=== PATIENT | male | born 1950 | race Caucasian/White ===

== ENCOUNTER 2019-03-24 23:01 | Emergency (ER) | payer OTHER ==
[2019-03-24 23:05] VITALS: BP 133/60; PULSE 85; TEMP 97.5; BMI 27.2
== END 2019-03-24 23:46 | disposition left against medical advice (07) ==
LOC: JER 23:01
DX: Z53.21 Procedure and treatment not carried out due to patient leaving prior to being seen by health care provider (principal)
CPT/HCPCS: 99281-25

== ENCOUNTER 2019-03-25 00:34 | Inpatient (IN) | payer OTHER ==
--- NOTE | 2019-03-25 00:57 | PDOC ---
History of Present Illness - General Chief Complaint: Chronic pain Stated Complaint: SYNCOPE History Source: Patient Exam Limitations: No Limitations - History of Present Illness Initial Comments: 03/25/19 01:12 This is a 68-year-old male with extensive history hypertension high cholesterol diabetes who comes in complaining of left lower quadrant pain. Patient said he has had the pain mild for a couple of weeks and then today got much worse to the point that he became lightheaded dizzy and syncopized. Patient hit his mari when he fell down. Patient denies hitting his head. Patient was in his bathroom when he syncopized. Patient said that he did have a bowel movement today. Patient also has a history of vertigo for which she takes meclizine and is on an aspirin a day Allergies: as per nursing notes Past Medical History: As per history of present illness Social history: Lives with family. No smoking. No alcohol. No illicit drugs. Surgical history: None General: No fevers or chills, no weakness, no weight loss HEENT: No change in vision. No sore throat,. No ear pain CardioVascular: no chest discomfort. No shortness of breath Respiratory:No cough, or wheezing. Gastrointestinal: no nausea, vomiting, diarrhea or constipation, No rectal bleeding Genitourinary: No dysuria, hematuria, or frequency Musculoskeletal: No joint or muscle pain or swelling Neurologic: No headache, vertigo, dizziness or loss of consciousness Psychiatric: nor depression Skin: No rashes or easy bruising Endocrine: no increased thirst or abnormal weight change Allergic: no skin or latex allergy All other systems reviewed and normal Exam: General: Well-nourished well-developed individual, no acute distress HEENT: Throat: Normal, tonsils normal, no erythema or exudate Neck: Supple, no meningeal signs, no lymphadenopathy Eyes::Pupils equal reactive and round, extraocular motion intact Chest: Nontender to palpation Cardiac: S1-S2 normal, regular rate and rhythm, no murmurs rubs or gallops Respiratory: Lungs clear to auscultation bilateral Abdomen: Soft, nondistended, normal bowel sounds, there is moderately tender in left lower quadrant with no guarding or rebound. Bowel sounds are present but decreased. Extremities: Warm, dry, no cyanosis, clubbing, or edema Skin: No rashes Neuro: Alert and oriented x3, CN II - XII intact, nonfocal exam with normal strength, normal sensation, normal reflexes, normal gait, Psych: Normal mood and affect Assessment and plan: This is 68-year-old male who comes in complaining of lower quadrant pain and a syncopal event secondary to the pain as per patient. Workup initiated including EKG, CBC, comp, chest x-ray, CAT scan abdomen and pelvis, CAT scan had Patient's tetanus is up-to-date Will follow-up evaluation, reassess and monitor patient 03/25/19 01:16 03/25/19 05:[address] is negative for any acute pathology of Abdominal CT shows a perforated diverticulitis with early abscess formation. Assessment and plan: This is a 68-year-old male with perforated diverticulitis and abdominal pain. Surgery was contacted Past History - Past Medical History Allergies/Adverse Reactions: Allergies Allergy/AdvReac Type Severity Reaction Status Date / Time No Known Allergies Allergy Verified 03/24/19 23:05 Home Medications: Ambulatory Orders Aspirin [ASA -] 325 mg PO DAILY 03/25/19 Losartan Potassium 25 mg PO DAILY 03/25/19 Meclizine HCl [Antivert -] 25 mg PO DAILY 03/25/19 Metformin HCl [Glucophage] 750 mg PO BID 03/25/19 Simvastatin 20 mg PO HS 03/25/19 COPD: No HTN: Yes Hypercholesterolemia: Yes - Suicide/Smoking/Psychosocial Hx Smoking Status: No Smoking History: Unknown if ever smoked Number of Cigarettes Smoked Daily: 0 Hx Alcohol Use: No Drug/Substance Use Hx: No Substance Use Type: None Hx Substance Use Treatment: No ED Treatment Course - LABORATORY CBC & Chemistry Diagram: 03/25/19 01:25 03/25/19 01:25 *DC/Admit/Observation/Transfer Diagnosis at time of Disposition: Diverticulitis large intestine Qualifiers: Diverticulitis complication: with perforation and abscess - Discharge Dispostion Condition at time of disposition: Good Decision to Admit order: Yes - Referrals - Patient Instructions - Post Discharge Activity
[2019-03-25 01:41] LABS: BASO % 0.2 % (0-2.0); EOS % 0.4 % (0-4.5); HEMATOCRIT 39.1 % (35.4-49); HEMOGLOBIN 13.1 GM/dL (11.7-16.9); LYMPH % 5.5 % (8-40); MCH 29.9 pg (25.7-33.7); MCHC 33.5 g/dl (32.0-35.9); MEAN CELL VOLUME 89.3 fl (80-96); MONO % 4.5 % (3.8-10.2); NEUT % 89.4 % (42.8-82.8); PLATELET COUNT 281 K/MM3 (134-434); RBC 4.38 M/mm3 (4.00-5.60); RDW 13.5 % (11.9-15.9)
[2019-03-25] MEDS ORDERED: morphine SULFATE 4 MG/ML VIAL ONE (01:44)
[2019-03-25] MEDS ORDERED: morphine CARPU-JECT 2 MG/1 ML DISP.SYRIN IVPUSH ONE (01:45)
[2019-03-25 02:09] LABS: ALBUMIN 4.2 g/dl (3.4-5.0); ALK PHOS 82 U/L (45-117); ANION GAP 9 MMOL/L (8-16); BILIRUBIN,TOTAL 0.9 mg/dL (0.2-1); BLOOD UREA NITROGEN 24.2 mg/dL (7-18); CALCIUM 8.8 mg/dL (8.5-10.1); CHLORIDE 100 mmol/L (98-107); CO2 29 mmol/L (21-32); CREATININE 1.2 mg/dL (0.55-1.3); GLUCOSE,RANDOM 150 mg/dL (74-106); POTASSIUM 3.9 mmol/L (3.5-5.1); SGOT/AST 24 U/L (15-37); SGPT/ALT 23 U/L (13-61); SODIUM 137 mmol/L (136-145); TOT PROT 7.2 g/dl (6.4-8.2)
[2019-03-25] MEDS ORDERED: PIPERACILLIN/TAZOB 4.5 GM 4.5 GM in DEXTROSE 5%-WATER 100 ML IVPB ONE (05:40)
[2019-03-25] MEDS ORDERED: PIPERACILLIN/TAZOBACTAM 4.5 GM VIAL IVPB ONE ×2 (05:48→17:36)
[2019-03-25] MEDS: SODIUM CHLORIDE 1,000 ML IV SCH ×2 (06:03→15:30)
[2019-03-25] MEDS ORDERED: HYDROmorphone HCL CARPU-JECT 1 MG/1 ML DISP.SYRIN IVPUSH ONE (06:09)
[2019-03-25] MEDS ORDERED: HYDROmorphone HCL CARPU-JECT 1 MG/1 ML DISP.SYRIN ONE (06:12)
[2019-03-25] MEDS ORDERED: HYDROmorphone HCl 2 MG/ML VIAL IVPUSH PRN (08:15)
[2019-03-25] MEDS ORDERED: ACETAMINOPHEN 1000 MG/100 ML VIAL (NON FORMULARY) IVPB PRN ×3 (08:19→19:31)
--- NOTE | 2019-03-25 08:32 | HP ---
CHIEF COMPLAINT: LLQ pain PCP: HISTORY OF PRESENT ILLNESS: Patient is a 68 year old male with past medical history of HTN, HLD and DM, presented to [facility] ED due to worsening LLQ pain for 1 day. Patient reported experiencing constant, sharp 5/10 LLQ pain that started 2 weeks ago. At this time, patient also started experiencing constipation but denies nausea/ vomiting. No medications or consults were done. Yesterday morning, patient experienced worsening of the LLQ pain, 10/10 in severity that he almost passed out and fell to the floor "due to the pain". He denies any head trauma. He reported decreased appetite, but denies any fever, chills, nausea, vomiting, headache, chest pain, SOB, diarrhea, urinary symptoms. Last bowel movement yesterday. Of note, patient had a colonscopy 3-4 years ago and was told everything was normal. ER course was notable for: (1)WBC 20148 (2)CTAP - perforated acute diverticulitis at the junction of the descending and sigmoid colon with a small collection. Giant diverticulum vs chronic abscess within the mid sigmoid colon. (3)Flagyl and Zosyn given once Recent Travel:denies PAST MEDICAL HISTORY: HTN HLD DM PAST SURGICAL HISTORY: Right inguinal hernia repair Social History: Smoking:denies Alcohol:denies Drugs: denies Family History: Daughter- Colon cancer Allergies No Known Allergies Allergy (Verified 03/24/19 23:05) HOME MEDICATIONS: Home Medications Medication Instructions Recorded Aspirin [ASA -] 325 mg PO DAILY 03/25/19 Losartan Potassium 25 mg PO DAILY 03/25/19 Meclizine HCl [Antivert -] 25 mg PO DAILY 03/25/19 Metformin HCl [Glucophage] 750 mg PO BID 03/25/19 Simvastatin 20 mg PO HS 03/25/19 REVIEW OF SYSTEMS CONSTITUTIONAL: Absent: fever, chills, diaphoresis, generalized weakness, malaise, loss of appetite, weight change HEENT: Absent: rhinorrhea, nasal congestion, throat pain, throat swelling, difficulty swallowing, mouth swelling, ear pain, eye pain, visual changes CARDIOVASCULAR: Absent: chest pain, syncope, palpitations, irregular heart rate, lightheadedness , peripheral edema RESPIRATORY: Absent: cough, shortness of breath, dyspnea with exertion, orthopnea, wheezing, stridor, hemoptysis GASTROINTESTINAL:abdominal pain Absent: abdominal distension, nausea, vomiting, diarrhea, constipation, melena, hematochezia GENITOURINARY: Absent: dysuria, frequency, urgency, hesitancy, hematuria, flank pain, genital pain MUSCULOSKELETAL: Absent: myalgia, arthralgia, joint swelling, back pain, neck pain SKIN: Absent: rash, itching, pallor HEMATOLOGIC/IMMUNOLOGIC: Absent: easy bleeding, easy bruising, lymphadenopathy, frequent infections ENDOCRINE: Absent: unexplained weight gain, unexplained weight loss, heat intolerance, cold intolerance NEUROLOGIC: Absent: headache, focal weakness or paresthesias, dizziness, unsteady gait, seizure, mental status changes, bladder or bowel incontinence PSYCHIATRIC: Absent: anxiety, depression, suicidal or homicidal ideation, hallucinations. PHYSICAL EXAMINATION Vital Signs - 24 hr 03/25/19 03/25/19 01:25 02:59 Temperature 98.4 F Pulse Rate 76 Pulse Rate [ 80 Left] Respiratory 16 18 Rate Blood Pressure 106/62 Blood Pressure 116/63 [Left] O2 Sat by Pulse 100 95 Oximetry (%) GENERAL: Awake, alert, and fully oriented, in no acute distress. HEAD: Normal with no signs of trauma. EYES: PERRLA, EOMI, sclera anicteric, conjunctiva clear. NECK: Normal range of motion, supple. LUNGS: Breath sounds equal, clear to auscultation bilaterally. HEART: Regular rate and rhythm, normal S1 and S2 without murmur, rub or gallop. ABDOMEN: Soft, +LLQ tenderness, not distended, normoactive bowel sounds, no guarding, no rebound. MUSCULOSKELETAL: Normal range of motion at all joints. No bony deformities or tenderness. No CVA tenderness. UPPER EXTREMITIES: 2+ pulses, warm, well-perfused. No peripheral edema. LOWER EXTREMITIES: 2+ pulses, warm, well-perfused. No peripheral edema. NEUROLOGICAL: Cranial nerves II-XII intact. Normal speech. Normal gait. PSYCHIATRIC: Cooperative. Good eye contact. Appropriate mood and affect. SKIN: Warm, dry, normal turgor, no rashes or lesions noted. Laboratory Results - last 24 hr 03/25/19 03/25/19 03/25/19 01:25 01:25 01:25 WBC 18.0 H RBC 4.38 Hgb 13.1 Hct 39.1 MCV 89.3 MCH 29.9 MCHC 33.5 RDW 13.5 Plt Count 281 MPV 9.0 Absolute Neuts (auto) 16.1 H Neutrophils % 89.4 H Lymphocytes % 5.5 L Monocytes % 4.5 Eosinophils % 0.4 Basophils % 0.2 Nucleated RBC % 0 Sodium 137 Potassium 3.9 Chloride 100 Carbon Dioxide 29 Anion Gap 9 BUN 24.2 H Creatinine 1.2 Est GFR (CKD-EPI)AfAm 71.58 Est GFR (CKD-EPI)NonAf 61.76 Random Glucose 150 H Calcium 8.8 Total Bilirubin 0.9 AST 24 ALT 23 Alkaline Phosphatase 82 Creatine Kinase 496 H Creatine Kinase Index 2.8 CK-MB (CK-2) 14.2 H Troponin I < 0.02 Total Protein 7.2 Albumin 4.2 Urine Color Yellow Urine Appearance Clear Urine pH 5.0 Urine Protein Negative Urine Glucose (UA) Negative Urine Ketones Negative Urine Blood N Urine Nitrite Negative Urine Bilirubin Negative Urine Urobilinogen 0.2 Ur Leukocyte Esterase Negative ASSESSMENT/PLAN: Patient is a 68 year old male with past medical history of HTN, HLD and DM, presented to [facility] ED due to worsening LLQ pain for 1 day. #Acute perforated sigmoid diverticulitis -CTAP - perforated acute diverticulitis at the junction of the descending and sigmoid colon with a small collection. Giant diverticulum vs chronic abscess within the mid sigmoid colon. -Surgery (Dr. Ferguson) consulted. Recommendations appreciated. -IR (Dr. Morse) consulted for abscess drainage. -As per IR, drainage not recommended at this time, as it may cause fistula formation. -Continue Iv Fluids -NPO -Dilaudid 2q6h PRN for pain -IV Zosyn 3.375 q8h -ID (Dr. Ruff) consulted. #DM -Insulin sliding scale implemented -BGM q6h #HTN -On Losartan/HCTZ 100/25 -will hold home meds for now while NPO, await surgery/IR recs #HLD -Will hold Simvastatin and Gemfibrozil while NPO #FEN -IV NS @ 150cc/hr -Electrolytes wnl, routine bmp monitoring -NPO #Prophylaxis -SCDs #Disposition -full code -admit to med surg Visit type - Emergency Visit Emergency Visit: Yes ED Registration Date: 03/25/19 Care time: The patient presented to the Emergency Department on the above date and was hospitalized for further evaluation of their emergent condition. - New Patient This patient is new to me today: Yes Date on this admission: 03/25/19 - Critical Care Critical Care patient: No
[2019-03-25] MEDS: INSULIN SLIDING SCALE (NOVOLOG) 1 VIAL SQ SCH ×4 (09:08→21:21)
[2019-03-25 09:56] LABS: INR 1.11 (0.83-1.09); PROTHROMBIN TIME (PATIENT) 13.1 SEC (9.7-13.0)
[2019-03-25] MEDS ORDERED: LOSARTAN POTASSIUM 25 MG TABLET PO SCH (10:00)
[2019-03-25] MEDS ORDERED: MECLIZINE HCL 25 MG TABLET (FP) PO SCH (10:00)
[2019-03-25] MEDS ORDERED: PIPERACILLIN/TAZOB 3.375 GM 3.375 GM in DEXTROSE 5%-WATER - 50 ML IVPB SCH (10:00)
[2019-03-25 11:36] VITALS: BMI 27.5
--- NOTE | 2019-03-25 12:24 | CONSULT ---
Consult Consult Specialty:: General Surgery Reason for Consultation:: Diverticulsitis - History of Present Illness Chief Complaint: Abdominal pain History of Present Illness: 68 yo male PMH hypertension, diverticulosis, constipation, high cholesterol, diabetes who comes in complaining of left lower quadrant pain. Patient said he has had the pain mild for a couple of weeks and then today got much worse to the point that he became lightheaded dizzy and syncopized. Patient was in his bathroom when he syncopized. Patient said that he did have a bowel movement today. Pain is focal to LLQ, no radiation. He has not had a previous episode of abdominal pain. He had a colonoscopy in 2016 at [facility] [address]. Lynn that was reported to be normal but actually showed PANDIVERTICULOSIS and he had polyps removed. he denies constipation. report occasional hard stool. we were asked to assess - History Source History Provided By: Patient, Medical Record Limitations to Obtaining History: No Limitations - Past Medical History Gastrointestinal: Yes: Constipation, Diverticulitis, Diverticulosis, Gastritis - Alcohol/Substance Use Hx Alcohol Use: No - Smoking History Smoking history: Never smoked Have you smoked in the past 12 months: No Aproximately how many cigarettes per day: 0 Home Medications - Allergies Allergies/Adverse Reactions: Allergies Allergy/AdvReac Type Severity Reaction Status Date / Time No Known Allergies Allergy Verified 03/24/19 23:05 - Home Medications Home Medications: Ambulatory Orders Gemfibrozil 1 tab PO BID 03/25/19 Losartan/Hydrochlorothiazide [Losartan-Hctz 100-25 mg Tab] 1 each PO DAILY 03/25 Meclizine HCl [Antivert -] 25 mg PO DAILY 03/25/19 Metformin HCl [Glucophage] 750 mg PO BID 03/25/19 Simvastatin 20 mg PO HS 03/25/19 Sulindac 200 mg PO DAILY 03/25/19 Tamsulosin HCl [Flomax] 0.4 mg PO HS 03/25/19 Review of Systems - Review of Systems Constitutional: denies: Chills, Fever Eyes: denies: Blind Spots, Recent Change in Vision HENT: reports: Other. denies: Difficult Swallowing, Ocular Prosthesis Neck: denies: Decreased ROM, Tenderness Cardiovascular: denies: Chest Pain, Palpitations Respiratory: denies: Cough, SOB Gastrointestinal: reports: Abdominal Pain, Constipation. denies: Bloating, Melena Genitourinary: denies: Burning, Discharge, Dysuria Breasts: reports: No Symptoms Reported. denies: Pain Musculoskeletal: denies: Back Pain, Muscle Pain Integumentary: denies: Bruising, Pallor, Pruritis Neurological: denies: Seizure, Syncope, Tremors Endocrine: denies: Unexplained Weight Gain, Unexplained Weight Loss Hematology/Lymphatic: denies: Easily Bruised, Excessive Bleeding Psychiatric: denies: Anxiety, Depression Physical Exam Vital Signs: Vital Signs Temperature 99.4 F 03/25/19 10:00 Pulse Rate 79 03/25/19 10:00 Respiratory Rate 20 03/25/19 10:00 Blood Pressure 108/71 03/25/19 10:00 O2 Sat by Pulse Oximetry (%) 95 03/25/19 09:00 Vital Signs Period Temp Pulse Resp BP Sys/[place] Pulse Ox Last 24 Hr 98.1 F-101.1 F 68-85 18-20 106-140/57-71 95 Constitutional: Yes: Well Nourished, No Distress, Calm Eyes: Yes: Conjunctiva Clear, EOM Intact HENT: Yes: Atraumatic, Normocephalic Neck: Yes: Supple, Trachea Midline Cardiovascular: Yes: Regular Rate and Rhythm, S1, S2 Respiratory: Yes: Regular, CTA Bilaterally Gastrointestinal: Yes: Normal Bowel Sounds, Soft, Tenderness (LLQ without radiation). No: Palpable Mass, Pulsatile Mass, Rectal Bleeding, Tenderness, Epigastrium, Tenderness, Rebound, Vomiting ...Rectal Exam: Yes: Sphincter Tone Normal. No: Hemorrhoids/External, Mass Renal/: No: CVA Tenderness - Left, CVA Tenderness - Right Breast(s): No: Mass, Nipple Inversion Musculoskeletal: No: Muscle Pain, Muscle Weakness Extremities: No: Calf Tenderness, Cool, Cyanosis Edema: No Peripheral Pulses WNL: Yes Integumentary: No: Jaundice, Rash Neurological: Yes: Alert, Oriented Psychiatric: Yes: Alert, Oriented Labs: CBC, BMP 03/25/19 01:25 03/25/19 01:25 Imaging - Results Cat Scan: Report Reviewed, Image Reviewed (complicated decending and sigmoid diverticulitis) Problem List - Problems (1) Diverticular disease of intestine with perforation and abscess Assessment/Plan: 68yo male with MMP including pandiverticulosis presents with his first episode of complicated diverticulitis (contained perforated diverticulsitis with abscess ) reviewed with IR thought to be a large intramural abscess no a free perforation. Only would consider emergency intervention if wosening clinically. The plan for elective partial colectomy was discussed with patient and daughter. NPO and IVF hydration IV antibiotics Adequate analgesia Colonoscopy in 6-8 weeks by JOSE Lynn f/u in surgery clinic for elective partial colectomy Thank you for the opportunity to participate in the care of this patient. Code(s): K57.80 - DVTRCLI OF INTEST, PART UNSP, W PERF AND ABSCESS W/O BLEED (2) Diverticulitis large intestine Code(s): K57.32 - DVTRCLI OF LG INT W/O PERFORATION OR ABSCESS W/O BLEEDING Qualifiers: Diverticulitis bleeding: without bleeding Diverticulitis complication: with perforation and abscess Qualified Code(s): K57.20 - Diverticulitis of large intestine with perforation and abscess without bleeding (3) Constipation Code(s): K59.00 - CONSTIPATION, UNSPECIFIED Qualifiers: Constipation type: unspecified constipation type Qualified Code(s): K59.00 - Constipation, unspecified (4) Abdominal pain in male Code(s): R10.9 - UNSPECIFIED ABDOMINAL PAIN
--- NOTE | 2019-03-25 12:53 | PN ---
Progress Note (short form) - Note Progress Note: ID CONSULT DICTATED COMPLICATED ACUTE DIVERTICULITIS DIVERTICULAR ABSCESS LEUKOCYTOSIS R/O SEPSIS SECONDARY TO GI SOURCE OBTAIN BC SURGICAL EVALUATION EMPIRIC ZOSYN DISCUSSED WITH PATIENT'S DAUGHTER AT BEDSIDE
--- NOTE | 2019-03-25 15:44 | CONS ---
DATE OF CONSULTATION: DATE OF DICTATION: 03/25/2019 INFECTIOUS DISEASE CONSULTATION HISTORY OF PRESENT ILLNESS: The patient is a 68-year-old male evaluated for complicated diverticulitis. The patient reports a 2-week history of left lower quadrant abdominal pain. It became markedly worse prior to admission. Patient became dizzy and had a near-syncopal episode. He was evaluated in the emergency room, where CAT scan of the head was performed and was negative for acute infarct or bleed. A CAT scan of the abdomen and pelvis was performed and showed a perforated acute diverticulitis at the junction of the descending and sigmoid colon. In addition there was a 2nd lesion which was interpreted to be a giant diverticulum versus chronic abscess within the mid sigmoid. The patient has persistent left lower quadrant abdominal pain. He reports nausea but no vomiting. He reports having a normal bowel movement on the day prior to admission. No associated fever or chills. He was noted to have a white blood cell count of 18,000 on admission. PAST MEDICAL HISTORY: Positive for hypertension, hyperlipidemia, diabetes mellitus. PAST SURGICAL HISTORY: Status post right inguinal hernia repair. ALLERGIES: No known allergies. MEDICATION: Aspirin, losartan, TriCor, Antivert, Zocor, Diovan. SOCIAL HISTORY: He resides in the community. He is a nonsmoker, nondrinker. SYSTEMS REVIEW: Neurologic: No loss of consciousness, seizure activity, focal weakness. Cardiac: Negative for chest pain or palpitations. Respiratory: Negative for cough or sputum production. Gastrointestinal: As per HPI. Genitourinary: Negative for urinary tract infection. LABORATORY DATA: White count 18.0, hematocrit 39.1, platelet count 281, creatinine 1.2. Urinalysis negative. LFTs normal. PHYSICAL EXAMINATION: General: On exam, he is awake, supine in bed, in no acute distress at the present time. Vital signs: Temperature 98.4, blood pressure 106/62, pulse 80 regular, respirations 18 per minute. HEENT: Sclerae anicteric. Cardiovascular: Heart sounds S1, S2. Lungs: Clear. Abdomen: Positive bowel sounds. Abdomen is soft with left lower quadrant tenderness to palpation. No rebound or rigidity. Extremities: Negative for edema. IMPRESSION: 1. Acute complicated diverticulitis. 2. Diverticular abscess. 3. Leukocytosis, rule out sepsis secondary to gastrointestinal source. Obtain blood cultures. Surgical evaluation. Empiric antibiotic coverage with Zosyn of 4.5 g IV piggyback every 8 hours. Case discussed with patient's daughter present at the time of examination. Thank you for the kind referral. GABRIELA THOMPSON M.D. [id number]
[2019-03-25] MEDS ORDERED: DEXTROSE 5%-WATER 100 ML IVPB ONE (17:36)
[2019-03-25] MEDS: PIPERACILLIN/TAZOB 4.5 GM 4.5 GM in DEXTROSE 5%-WATER 100 ML IVPB SCH (17:41)
--- NOTE | 2019-03-25 20:35 | PN ---
Teaching Attending Note Name of Resident: Sherrill Brown ATTENDING PHYSICIAN STATEMENT I saw and evaluated the patient. I reviewed the resident's note and discussed the case with the resident. I agree with the resident's findings and plan as documented. SUBJECTIVE: LLQ abdominal pain. No nausea/vomiting/ No diarrhea/melena/ hematochezia. OBJECTIVE: Fever, Tmax 101.1 Hemodynamically Stable. Last Vital Signs Temp Pulse Resp BP Pulse Ox 98.1 F 68 20 106/57 L 95 03/25/19 19:35 03/25/19 19:35 03/25/19 19:35 03/25/19 19:35 03/25/19 09:00 HEENT - Atraumatic, Normocephalic. Heart - S1, S2, RRR Lungs - clear to auscultation Abdomen - soft, LLQ tenderness. Bowel Sounds normal. Extremities - No calf tenderness, no edema. Laboratory Results - last 24 hr 03/25/19 03/25/19 03/25/19 01:25 01:25 01:25 WBC 18.0 H RBC 4.38 Hgb 13.1 Hct 39.1 MCV 89.3 MCH 29.9 MCHC 33.5 RDW 13.5 Plt Count 281 MPV 9.0 Absolute Neuts (auto) 16.1 H Neutrophils % 89.4 H Lymphocytes % 5.5 L Monocytes % 4.5 Eosinophils % 0.4 Basophils % 0.2 Nucleated RBC % 0 PT with INR INR Sodium 137 Potassium 3.9 Chloride 100 Carbon Dioxide 29 Anion Gap 9 BUN 24.2 H Creatinine 1.2 Est GFR (CKD-EPI)AfAm 71.58 Est GFR (CKD-EPI)NonAf 61.76 POC Glucometer Random Glucose 150 H Calcium 8.8 Total Bilirubin 0.9 AST 24 ALT 23 Alkaline Phosphatase 82 Creatine Kinase 496 H Creatine Kinase Index 2.8 CK-MB (CK-2) 14.2 H Troponin I < 0.02 Total Protein 7.2 Albumin 4.2 Urine Color Yellow Urine Appearance Clear Urine pH 5.0 Urine Protein Negative Urine Glucose (UA) Negative Urine Ketones Negative Urine Blood N Urine Nitrite Negative Urine Bilirubin Negative Urine Urobilinogen 0.2 Ur Leukocyte Esterase Negative Blood Type Antibody Screen 03/25/19 03/25/19 03/25/19 08:45 08:45 09:07 WBC RBC Hgb Hct MCV MCH MCHC RDW Plt Count MPV Absolute Neuts (auto) Neutrophils % Lymphocytes % Monocytes % Eosinophils % Basophils % Nucleated RBC % PT with INR 13.10 H INR 1.11 H Sodium Potassium Chloride Carbon Dioxide Anion Gap BUN Creatinine Est GFR (CKD-EPI)AfAm Est GFR (CKD-EPI)NonAf POC Glucometer 125 Random Glucose Calcium Total Bilirubin AST ALT Alkaline Phosphatase Creatine Kinase Creatine Kinase Index CK-MB (CK-2) Troponin I Total Protein Albumin Urine Color Urine Appearance Urine pH Urine Protein Urine Glucose (UA) Urine Ketones Urine Blood Urine Nitrite Urine Bilirubin Urine Urobilinogen Ur Leukocyte Esterase Blood Type O POSITIVE Antibody Screen Negative 03/25/19 03/25/19 03/25/19 11:03 11:53 17:13 WBC RBC Hgb Hct MCV MCH MCHC RDW Plt Count MPV Absolute Neuts (auto) Neutrophils % Lymphocytes % Monocytes % Eosinophils % Basophils % Nucleated RBC % PT with INR INR Sodium Potassium Chloride Carbon Dioxide Anion Gap BUN Creatinine Est GFR (CKD-EPI)AfAm Est GFR (CKD-EPI)NonAf POC Glucometer 123 134 Random Glucose Calcium Total Bilirubin AST ALT Alkaline Phosphatase Creatine Kinase Creatine Kinase Index CK-MB (CK-2) Troponin I Total Protein Albumin Urine Color Urine Appearance Urine pH Urine Protein Urine Glucose (UA) Urine Ketones Urine Blood Urine Nitrite Urine Bilirubin Urine Urobilinogen Ur Leukocyte Esterase Blood Type O POSITIVE Antibody Screen Current Medications Generic Name Dose Route Start Last Admin Trade Name Freq PRN Reason Stop Dose Admin Acetaminophen 1,000 mg 03/25/19 19:31 Ofirmev Injection - IVPB Q6H PRN PAIN OR FEVER Hydromorphone HCl 2 mg 03/25/19 10:01 Dilaudid Vial - IVPB Q6H PRN PAIN LEVEL 7 - 10 Sodium Chloride 1,000 mls @ 150 mls/hr 03/25/19 05:45 03/25/19 15:30 Normal Saline - IV 150 mls/hr ASDIR TERRY Administration Piperacillin Sod/Tazobactam 100 mls @ 200 mls/hr 03/25/19 18:00 03/25/19 17: 41 Sod 4.5 gm/ Dextrose IVPB 200 mls/hr Q8H-IV TERRY Administration Protocol Insulin Aspart 1 vial 03/25/19 08:15 03/25/19 17:16 Novolog Vial Sliding Scale - SQ Not Given ACHS TERRY Protocol ASSESSMENT AND PLAN: 68 year old male with history of HTN, HLD and DM 2, presented to [facility] ED with 2 week history of nagging LLQ abdominal pain, worse overnight, found to have perforated sigmoid diverticulitis with abscess and transferred to [facility]. 1. Sepsis secondary to Acute Perforated Sigmoid Diverticulitis with Abscess Leukocytosis, Fever. CT A/P - perforated acute diverticulitis at the junction of the descending and sigmoid colon with a small collection. Giant diverticulum vs chronic abscess within the mid sigmoid colon. 2.8 x 1.7 x 2.3cm Surgery consulted - recommended IR for abscess drainage NPO, IV fluids. Lactate level requested. IV Zosyn, ID consult. GI consult requested by patient's daughter. 2. DM 2 - Maintain on Novolog sliding scale. 3. HTN - normally on Losartan/HCTZ, currently held due to borderline BP/sepsis. 4. HLD - Simvastatin, Gemfibrozil held. DVT Px - Heparin SQ
[2019-03-25] MEDS ORDERED: ATORVASTATIN CA 10 MG TABLET (FP) PO SCH (22:00)
[2019-03-26] MEDS ORDERED: DEXTROSE 5%-WATER 100 ML IVPB ONE ×3 (01:41→17:34)
[2019-03-26] MEDS ORDERED: PIPERACILLIN/TAZOBACTAM 4.5 GM VIAL IVPB ONE ×3 (01:41→17:34)
[2019-03-26] MEDS: PIPERACILLIN/TAZOB 4.5 GM 4.5 GM in DEXTROSE 5%-WATER 100 ML IVPB SCH ×3 (01:47→17:38)
[2019-03-26] MEDS: HYDROmorphone HCl 2 MG/ML VIAL IVPB PRN ×2 (02:38→20:46)
--- NOTE | 2019-03-26 06:17 | PN ---
Physical Exam: SUBJECTIVE: Patient seen and examined at bedside. Pt is comfortable in bed. he stated he has abdominal pain 6/10 in his LLQ. OBJECTIVE: Vital Signs Period Temp Pulse Resp BP Sys/Brumfield Pulse Ox Last 24 Hr 98.1 F-101.1 F 68-85 18-20 106-140/57-71 95 GENERAL: The patient is awake, alert, and fully oriented, in no acute distress. HEAD: Normal with no signs of trauma. LUNGS: Breath sounds equal, clear to auscultation bilaterally, no wheezes, no crackles, no accessory muscle use. HEART: Regular rate and rhythm, S1, S2 without murmur, rub or gallop. ABDOMEN: Soft, tender to palpation on LLQ, mildly distended, normoactive bowel sounds, no guarding, no rebound EXTREMITIES: 2+ pulses, warm, well-perfused, no edema. NEUROLOGICAL: Cranial nerves II through XII grossly intact. Normal speech PSYCH: Normal mood, normal affect. SKIN: Warm, dry, normal turgor, no rashes or lesions noted Laboratory Results - last 24 hr 03/25/19 03/25/19 03/25/19 08:45 08:45 09:07 PT with INR 13.10 H INR 1.11 H POC Glucometer 125 Blood Type O POSITIVE Antibody Screen Negative 03/25/19 03/25/19 03/25/19 11:03 11:53 17:13 PT with INR INR POC Glucometer 123 134 Blood Type O POSITIVE Antibody Screen 03/25/19 03/26/19 20:46 06:04 PT with INR INR POC Glucometer 122 103 Blood Type Antibody Screen Active Medications Generic Name Dose Route Start Last Admin Trade Name Freq PRN Reason Stop Dose Admin Acetaminophen 1,000 mg 03/25/19 19:31 Ofirmev Injection - IVPB Q6H PRN PAIN OR FEVER Hydromorphone HCl 2 mg 03/25/19 10:01 03/26/19 02:38 Dilaudid Vial - IVPB 2 mg Q6H PRN Administration PAIN LEVEL 7 - 10 Sodium Chloride 1,000 mls @ 150 mls/hr 03/25/19 05:45 03/25/19 15:30 Normal Saline - IV 150 mls/hr ASDIR TERRY Administration Piperacillin Sod/Tazobactam 100 mls @ 200 mls/hr 03/25/19 18:00 03/26/19 01: 47 Sod 4.5 gm/ Dextrose IVPB 200 mls/hr Q8H-IV TERRY Administration Protocol Insulin Aspart 1 vial 03/25/19 08:15 03/25/19 21:21 Novolog Vial Sliding Scale - SQ Not Given ACHS TERRY Protocol ASSESSMENT/PLAN: Mr. Cornejo is a 68 yo M w/ PMH of HTN, HLD, DM. PT p/w 10/10 LLQ pain to ED. Pain initially began as constant 5/10 pain 2 weeks ago. pt thought it could be a hernia. Then on 03/24/19 sharp pain increased to 10/10. Pt also complains of constipation and decreased appetite. pt last BM on 03/24/19. Pt has a family Hx of colon cancer. While in ED pt had CT abdomen/pelvis indicating perforated diverticulitis at the junction of the descending and sigmoid colon w/ small collection. Sepsis 2/2 Perforated Acute Diverticulitis -pt spiked to 101.1 on 03/25/19 , afebrile since then -Following with surgery recommendations -pt advanced to clear liquids and can be advanced to regular diet once pain resolves -c/w IVF -c/w Zosyn 4.5 g IVPB q8 as per ID -awaiting blood culture results -pt on dilauded prn, last given 2:38 on 03/26/19 -pt should get a colonoscopy in 6-[address] Lynn at [facility] -pt can f/u outpatient w/ surgery for elective partial colectomy -WBC: 18.0--> 13.4 HTN -pt home meds ( HCTZ, Losartan) held 2/2 sepsis HLD -pt home meds ( Simvastatin, Gemfibrozil) held DVT ppx -Heparin 5000 SQ TID Visit type - Emergency Visit Emergency Visit: No - New Patient This patient is new to me today: No - Critical Care Critical Care patient: No - Discharge Referral Referred to [facility] Med [facility] No
[2019-03-26] MEDS: INSULIN SLIDING SCALE (NOVOLOG) 1 VIAL SQ SCH ×4 (06:25→21:47)
[2019-03-26] MEDS: SODIUM CHLORIDE 1,000 ML IV SCH ×2 (06:26→22:55)
--- NOTE | 2019-03-26 07:15 | PN ---
Progress Note, Physician Chief Complaint: abdominal pain History of Present Illness: 68 yo male PMH hypertension, diverticulosis, constipation, high cholesterol, diabetes who comes in complaining of left lower quadrant pain. Patient said he has had the pain mild for a couple of weeks and then today got much worse to the point that he became lightheaded dizzy and syncopized. he has hand some interval improvement in his abdominal pain compared to yesterday and the day before. - Current Medication List Current Medications: Active Medications Acetaminophen (Ofirmev Injection -) 1,000 mg IVPB Q6H PRN PRN Reason: PAIN OR FEVER Hydromorphone HCl (Dilaudid Vial -) 2 mg IVPB Q6H PRN PRN Reason: PAIN LEVEL 7 - 10 Last Admin: 03/26/19 02:38 Dose: 2 mg Sodium Chloride (Normal Saline -) 1,000 mls @ 150 mls/hr IV ASDIR TERRY Last Admin: 03/26/19 06:26 Dose: Not Given Piperacillin Sod/Tazobactam (Sod 4.5 gm/ Dextrose) 100 mls @ 200 mls/hr IVPB Q8H-IV TERRY; Protocol Last Admin: 03/26/19 01:47 Dose: 200 mls/hr Insulin Aspart (Novolog Vial Sliding Scale -) 1 vial SQ ACHS TERRY; Protocol Last Admin: 03/26/19 06:25 Dose: Not Given - Objective Vital Signs: Vital Signs Temperature 98.1 F 03/25/19 19:35 Pulse Rate 68 03/25/19 19:35 Respiratory Rate 20 03/25/19 19:35 Blood Pressure 106/57 L 03/25/19 19:35 O2 Sat by Pulse Oximetry (%) 95 03/25/19 09:00 Vital Signs Period Temp Pulse Resp BP Sys/Brumfield Pulse Ox Last 24 Hr 98.1 F-101.1 F 68-85 18-20 106-140/57-70 Constitutional: Yes: Well Nourished, No Distress, Calm Eyes: Yes: Conjunctiva Clear, EOM Intact HENT: Yes: Atraumatic, Normocephalic Neck: Yes: Supple, Trachea Midline Cardiovascular: Yes: Regular Rate and Rhythm, S1, S2 Respiratory: Yes: Regular, CTA Bilaterally Gastrointestinal: Yes: Normal Bowel Sounds, Soft, Tenderness. No: Tenderness, Epigastrium, Tenderness, Rebound ...Rectal Exam: Yes: Deferred Genitourinary: No: CVA Tenderness - Left, CVA Tenderness - Right Musculoskeletal: No: Muscle Pain, Muscle Weakness Extremities: No: Cool, Cyanosis Edema: No Peripheral Pulses WNL: Yes Peripheral Pulses: Left Radial: 2+, Right Radial: 2+, Left Doralis Pedis: 2+, Right Dorsalis Pedis: 2+, Left Femoral: 2+, Right Femoral: 2+ Integumentary: No: Jaundice, Rash, Skin Tear Neurological: Yes: Alert, Oriented Psychiatric: Yes: Alert, Oriented Labs: CBC, BMP 03/25/19 01:25 03/25/19 01:25 INR, PTT INR 1.11 (0.83-1.09) H 03/25/19 08:45 Problem List - Problems (1) Diverticular disease of intestine with perforation and abscess Assessment/Plan: 68yo male with MMP including pandiverticulosis presents with his first episode of complicated diverticulitis (contained perforated diverticulsitis with abscess ) reviewed with IR thought to be a large intramural abscess no a free perforation. Only would consider emergency intervention if wosening clinically. The plan for elective partial colectomy was discussed with patient and daughter. He has improved abdominal pain and has persistent low grader fevers ni addition to improvement of leukocytosis 18K to 13K clear liquids advance diet to regular when pain free IVF hydration IV antibiotics Adequate analgesia GI consult at the discretion of the primary team Colonoscopy in 6-8 weeks by JOSE Lynn f/u in surgery clinic for elective partial colectomy Code(s): K57.80 - DVTRCLI OF INTEST, PART UNSP, W PERF AND ABSCESS W/O BLEED (2) Diverticulitis large intestine Code(s): K57.32 - DVTRCLI OF LG INT W/O PERFORATION OR ABSCESS W/O BLEEDING Qualifiers: Diverticulitis bleeding: without bleeding Diverticulitis complication: with perforation and abscess Qualified Code(s): K57.20 - Diverticulitis of large intestine with perforation and abscess without bleeding (3) Constipation Code(s): K59.00 - CONSTIPATION, UNSPECIFIED Qualifiers: Constipation type: unspecified constipation type Qualified Code(s): K59.00 - Constipation, unspecified (4) Abdominal pain in male Code(s): R10.9 - UNSPECIFIED ABDOMINAL PAIN
[2019-03-26 07:42] LABS: BASO % 0.1 % (0-2.0); EOS % 0.5 % (0-4.5); HEMATOCRIT 34.3 % (35.4-49); HEMOGLOBIN 11.6 GM/dL (11.7-16.9); LYMPH % 9.1 % (8-40); MCH 30.5 pg (25.7-33.7); MEAN CELL VOLUME 89.8 fl (80-96); MEAN PLT VOLUME 8.7 fl (7.5-11.1); MONO % 5.6 % (3.8-10.2); NEUT % 84.7 % (42.8-82.8); PLATELET COUNT 254 K/MM3 (134-434); RBC 3.81 M/mm3 (4.00-5.60); RDW 13.8 % (11.9-15.9); WHITE BLOOD COUNT 13.4 K/mm3 (4.0-10.0)
[2019-03-26 08:08] LABS: ALBUMIN 3.1 g/dl (3.4-5.0); BILIRUBIN,TOTAL 1.6 mg/dL (0.2-1); BLOOD UREA NITROGEN 15.3 mg/dL (7-18); CALCIUM 8.1 mg/dL (8.5-10.1); CREATININE 1.1 mg/dL (0.55-1.3); MAGNESIUM 1.8 mg/dL (1.8-2.4); PHOSPHOROUS 2.8 mg/dL (2.5-4.9); POTASSIUM 3.3 mmol/L (3.5-5.1); TOT PROT 6.2 g/dl (6.4-8.2)
--- NOTE | 2019-03-26 10:44 | EKG ---
Test Reason : Blood Pressure : / mmHG Vent. Rate : 089 BPM Atrial Rate : 089 BPM P-R Int : 160 ms QRS Dur : 088 ms QT Int : 398 ms P-R-T Axes : 039 -18 004 degrees QTc Int : 484 ms SINUS RHYTHM WITH MARKED SINUS ARRHYTHMIA MINIMAL VOLTAGE CRITERIA FOR LVH, MAY BE NORMAL VARIANT CANNOT RULE OUT ANTERIOR INFARCT , AGE UNDETERMINED ABNORMAL ECG NO PREVIOUS ECGS AVAILABLE Confirmed by LAXMI KNOWLES, RUSSEL ([id number]) on 03/26/2019 10:44:05 AM Referred By: Confirmed By:RUSSEL HAIR MD
[2019-03-26] MEDS ORDERED: INSULIN (NOVOLOG) ASPART 100 UNITS/ML 10ML VIAL ONE ×2 (11:12→21:45)
[2019-03-26] MEDS: KCL 10 MEQ IVPB 10 MEQ/100 ML INFUS.BAG IVPB SCH ×3 (11:18→14:30)
--- NOTE | 2019-03-26 18:02 | PN ---
Teaching Attending Note Name of Resident: Loulou Reynoso ATTENDING PHYSICIAN STATEMENT I saw and evaluated the patient. I reviewed the resident's note and discussed the case with the resident. I agree with the resident's findings and plan as documented. SUBJECTIVE: LLQ abdominal pain improving. No nausea/vomiting/ No diarrhea/melena /hematochezia. OBJECTIVE: Still febrile, T 100.6 Hemodynamically Stable. Last Vital Signs Temp Pulse Resp BP Pulse Ox 100.6 F H 76 20 125/71 94 L 03/26/19 16:55 03/26/19 16:55 03/26/19 16:55 03/26/19 16:55 03/26/19 09:00 Heart - S1, S2, RRR Lungs - clear to auscultation Abdomen - soft, LLQ tenderness. Bowel Sounds normal. Extremities - No calf tenderness, no edema. Laboratory Results - last 24 hr 03/25/19 03/26/19 03/26/19 20:46 06:04 06:55 WBC RBC Hgb Hct MCV MCH MCHC RDW Plt Count MPV Absolute Neuts (auto) Neutrophils % Lymphocytes % Monocytes % Eosinophils % Basophils % Nucleated RBC % Sodium 138 Potassium 3.3 L Chloride 103 Carbon Dioxide 28 Anion Gap 7 L BUN 15.3 Creatinine 1.1 Est GFR (CKD-EPI)AfAm 79.52 Est GFR (CKD-EPI)NonAf 68.61 POC Glucometer 122 103 Random Glucose 108 H Calcium 8.1 L Phosphorus 2.8 Magnesium 1.8 Total Bilirubin 1.6 H AST 20 ALT 20 Alkaline Phosphatase 69 Total Protein 6.2 L Albumin 3.1 L 03/26/19 03/26/19 03/26/19 07:14 11:20 17:39 WBC 13.4 H RBC 3.81 L Hgb 11.6 L Hct 34.3 L MCV 89.8 MCH 30.5 MCHC 34.0 RDW 13.8 Plt Count 254 MPV 8.7 Absolute Neuts (auto) 11.3 H Neutrophils % 84.7 H Lymphocytes % 9.1 D Monocytes % 5.6 Eosinophils % 0.5 Basophils % 0.1 Nucleated RBC % 0 Sodium Potassium Chloride Carbon Dioxide Anion Gap BUN Creatinine Est GFR (CKD-EPI)AfAm Est GFR (CKD-EPI)NonAf POC Glucometer 106 90 Random Glucose Calcium Phosphorus Magnesium Total Bilirubin AST ALT Alkaline Phosphatase Total Protein Albumin Current Medications Generic Name Dose Route Start Last Admin Trade Name Freq PRN Reason Stop Dose Admin Acetaminophen 1,000 mg 03/25/19 19:31 Ofirmev Injection - IVPB Q6H PRN PAIN OR FEVER Heparin Sodium (Porcine) 5,000 unit 03/26/19 22:00 Heparin - SQ TID TERRY Hydromorphone HCl 2 mg 03/25/19 10:01 03/26/19 02:38 Dilaudid Vial - IVPB 2 mg Q6H PRN Administration PAIN LEVEL 7 - 10 Sodium Chloride 1,000 mls @ 150 mls/hr 03/25/19 05:45 03/26/19 06:26 Normal Saline - IV Not Given ASDIR TERRY Piperacillin Sod/Tazobactam 100 mls @ 200 mls/hr 03/25/19 18:00 03/26/19 17: 38 Sod 4.5 gm/ Dextrose IVPB 200 mls/hr Q8H-IV TERRY Administration Protocol Insulin Aspart 1 vial 03/25/19 08:15 03/26/19 17:41 Novolog Vial Sliding Scale - SQ Not Given ACHS TERRY Protocol ASSESSMENT AND PLAN: 68 year old male with history of HTN, HLD and DM 2, presented to [facility] ED with 2 week history of nagging LLQ abdominal pain, worse overnight, found to have perforated sigmoid diverticulitis with abscess and transferred to [facility]. 1. Sepsis secondary to Acute Perforated Sigmoid Diverticulitis with Abscess Leukocytosis improving, Fever again today. CT A/P - perforated acute diverticulitis at the junction of the descending and sigmoid colon with a small collection. Giant diverticulum vs chronic abscess within the mid sigmoid colon. 2.8 x 1.7 x 2.3cm IR consulted for drainage - felt that collection may be intramural and therefore not amenable to drainage. Continue IV Zosyn GI consult requested by patient's daughter. Diet advanced to clears. Continue IV fluids (decrease rate to 75ml/hr) 2. DM 2 - Maintain on Novolog sliding scale. 3. HTN - normally on Losartan/HCTZ, currently held due to normal BP in setting of sepsis. 4. HLD - Simvastatin, Gemfibrozil held. DVT Px - Heparin SQ
--- NOTE | 2019-03-26 20:00 | PN ---
Progress Note, Physician History of Present Illness: AWAKE IN BED REPORTS LESS ABDOMINAL PAIN NO C/O N/V LOW GRADE FEVER WBC IMPROVED BC PRELIM NO GROWTH - Current Medication List Current Medications: Active Medications Acetaminophen (Ofirmev Injection -) 1,000 mg IVPB Q6H PRN PRN Reason: PAIN OR FEVER Heparin Sodium (Porcine) (Heparin -) 5,000 unit SQ TID TERRY Hydromorphone HCl (Dilaudid Vial -) 2 mg IVPB Q6H PRN PRN Reason: PAIN LEVEL 7 - 10 Last Admin: 03/26/19 02:38 Dose: 2 mg Piperacillin Sod/Tazobactam (Sod 4.5 gm/ Dextrose) 100 mls @ 200 mls/hr IVPB Q8H-IV TERRY; Protocol Last Admin: 03/26/19 17:38 Dose: 200 mls/hr Sodium Chloride (Normal Saline -) 1,000 mls @ 75 mls/hr IV ASDIR TERRY Insulin Aspart (Novolog Vial Sliding Scale -) 1 vial SQ ACHS TERRY; Protocol Last Admin: 03/26/19 17:41 Dose: Not Given - Objective Vital Signs: Vital Signs Temperature 100.5 F H 03/26/19 18:42 Pulse Rate 76 03/26/19 16:55 Respiratory Rate 20 03/26/19 16:55 Blood Pressure 125/71 03/26/19 16:55 O2 Sat by Pulse Oximetry (%) 94 L 03/26/19 09:00 Constitutional: Yes: No Distress Eyes: Yes: Conjunctiva Clear Cardiovascular: Yes: Regular Rate and Rhythm, S1, S2 Respiratory: Yes: CTA Bilaterally Gastrointestinal: Yes: Normal Bowel Sounds, Soft, Other (+ LLQ TENDERNESS TO PALP) Labs: CBC, BMP 03/26/19 07:14 03/26/19 06:55 INR, PTT INR 1.11 (0.83-1.09) H 03/25/19 08:45 Assessment/Plan ACUTE COMPLICATED DIVERTICULITIS DIVERTICULAR ABSCESS LEUKOCYTOSIS IMPROVED CONTINUE EMPIRIC ZOSYN DISCUSSED WITH PATIENT'S DAUGHTER AT BEDSIDE
[2019-03-26] MEDS: HEPARIN NA (PORCINE) 5,000 UNITS/ML 1ML VIAL SQ SCH (21:46)
[2019-03-27] MEDS ORDERED: PIPERACILLIN/TAZOBACTAM 4.5 GM VIAL IVPB ONE ×3 (01:13→17:23)
[2019-03-27] MEDS ORDERED: DEXTROSE 5%-WATER 100 ML IVPB ONE ×3 (01:14→17:24)
[2019-03-27] MEDS: PIPERACILLIN/TAZOB 4.5 GM 4.5 GM in DEXTROSE 5%-WATER 100 ML IVPB SCH ×3 (01:27→17:56)
[2019-03-27] MEDS: HEPARIN NA (PORCINE) 5,000 UNITS/ML 1ML VIAL SQ SCH ×3 (05:42→21:21)
[2019-03-27] MEDS: INSULIN SLIDING SCALE (NOVOLOG) 1 VIAL SQ SCH ×4 (06:03→21:22)
--- NOTE | 2019-03-27 10:55 | PN ---
Progress Note, Physician History of Present Illness: AWAKE IN BED REPORTS LESS ABDOMINAL PAIN NO C/O N/V LOW GRADE FEVER TOLERATED SOLID DIET REPORTS NORMAL BM TODAY BC NO GROWTH - Current Medication List Current Medications: Active Medications Acetaminophen (Ofirmev Injection -) 1,000 mg IVPB Q6H PRN PRN Reason: PAIN OR FEVER Heparin Sodium (Porcine) (Heparin -) 5,000 unit SQ TID TERRY Last Admin: 03/27/19 05:42 Dose: 5,000 unit Hydromorphone HCl (Dilaudid Vial -) 2 mg IVPB Q6H PRN PRN Reason: PAIN LEVEL 7 - 10 Last Admin: 03/26/19 20:46 Dose: 2 mg Piperacillin Sod/Tazobactam (Sod 4.5 gm/ Dextrose) 100 mls @ 200 mls/hr IVPB Q8H-IV TERRY; Protocol Last Admin: 03/27/19 09:07 Dose: 200 mls/hr Sodium Chloride (Normal Saline -) 1,000 mls @ 75 mls/hr IV ASDIR TERRY Last Admin: 03/26/19 22:55 Dose: 75 mls/hr Insulin Aspart (Novolog Vial Sliding Scale -) 1 vial SQ ACHS TERRY; Protocol Last Admin: 03/27/19 06:03 Dose: Not Given - Objective Vital Signs: Vital Signs Temperature 98.3 F 03/27/19 06:16 Pulse Rate 66 03/27/19 06:16 Respiratory Rate 20 03/27/19 06:16 Blood Pressure 124/69 03/27/19 06:16 O2 Sat by Pulse Oximetry (%) 94 L 03/26/19 21:00 Constitutional: Yes: No Distress Eyes: Yes: Conjunctiva Clear Cardiovascular: Yes: Regular Rate and Rhythm, S1, S2 Respiratory: Yes: CTA Bilaterally Gastrointestinal: Yes: Normal Bowel Sounds, Soft, Tenderness, Other (LESS TENDERNESS LLQ) Edema: No Labs: CBC, BMP 03/26/19 07:14 03/26/19 06:55 INR, PTT INR 1.11 (0.83-1.09) H 03/25/19 08:45 Assessment/Plan ACUTE COMPLICATED DIVERTICULITIS CLINICALLY IMPROVED DIVERTICULAR ABSCESS CONTINUE EMPIRIC ZOSYN REPEAT CBC SURGICAL F/U
--- NOTE | 2019-03-27 11:04 | PN ---
Progress Note, Physician Chief Complaint: abdominal pain History of Present Illness: 68 yo male PMH hypertension, diverticulosis, constipation, high cholesterol, diabetes who comes in complaining of left lower quadrant pain. Patient said he has had the pain mild for a couple of weeks and then today got much worse to the point that he became lightheaded dizzy and syncopized. he has hand some interval improvement in his abdominal pain compared to yesterday and the day before. - Current Medication List Current Medications: Active Medications Acetaminophen (Ofirmev Injection -) 1,000 mg IVPB Q6H PRN PRN Reason: PAIN OR FEVER Heparin Sodium (Porcine) (Heparin -) 5,000 unit SQ TID TERRY Last Admin: 03/27/19 05:42 Dose: 5,000 unit Hydromorphone HCl (Dilaudid Vial -) 2 mg IVPB Q6H PRN PRN Reason: PAIN LEVEL 7 - 10 Last Admin: 03/26/19 20:46 Dose: 2 mg Piperacillin Sod/Tazobactam (Sod 4.5 gm/ Dextrose) 100 mls @ 200 mls/hr IVPB Q8H-IV TERRY; Protocol Last Admin: 03/27/19 09:07 Dose: 200 mls/hr Sodium Chloride (Normal Saline -) 1,000 mls @ 75 mls/hr IV ASDIR TERRY Last Admin: 03/26/19 22:55 Dose: 75 mls/hr Insulin Aspart (Novolog Vial Sliding Scale -) 1 vial SQ ACHS TERRY; Protocol Last Admin: 03/27/19 06:03 Dose: Not Given - Objective Vital Signs: Vital Signs Temperature 98.3 F 03/27/19 06:16 Pulse Rate 66 03/27/19 06:16 Respiratory Rate 20 03/27/19 06:16 Blood Pressure 124/69 03/27/19 06:16 O2 Sat by Pulse Oximetry (%) 94 L 03/26/19 21:00 Vital Signs Period Temp Pulse Resp BP Sys/Brumfield Pulse Ox Last 24 Hr 97.7 F-100.6 F 66-85 18-20 120-131/55-71 94 Constitutional: Yes: Well Nourished, No Distress, Calm Eyes: Yes: Conjunctiva Clear, EOM Intact HENT: Yes: Atraumatic, Normocephalic Neck: Yes: Supple, Trachea Midline Cardiovascular: Yes: Regular Rate and Rhythm, S1, S2 Respiratory: Yes: Regular, CTA Bilaterally Gastrointestinal: Yes: Normal Bowel Sounds, Soft, Tenderness (improved) ...Rectal Exam: Yes: Deferred Genitourinary: No: CVA Tenderness - Left, CVA Tenderness - Right Musculoskeletal: No: Muscle Pain, Muscle Weakness Extremities: No: Cool, Cyanosis Edema: No Peripheral Pulses WNL: Yes Peripheral Pulses: Left Radial: 2+, Right Radial: 2+, Left Doralis Pedis: 2+, Right Dorsalis Pedis: 2+, Left Femoral: 2+, Right Femoral: 2+ Neurological: Yes: Alert, Oriented Psychiatric: Yes: Alert, Oriented Labs: CBC, BMP 03/26/19 07:14 03/26/19 06:55 INR, PTT INR 1.11 (0.83-1.09) H 03/25/19 08:45 Problem List - Problems (1) Diverticular disease of intestine with perforation and abscess Assessment/Plan: 68yo male with MMP including pandiverticulosis presents with his first episode of complicated diverticulitis (contained perforated diverticulsitis with abscess ) reviewed with IR thought to be a large intramural abscess no a free perforation. Only would consider emergency intervention if wosening clinically. The plan for elective partial colectomy was discussed with patient and daughter. He has improved abdominal pain and has persistent low grader fevers ni addition to improvement of leukocytosis 18K to 13K regular diet advance diet to regular when pain free IVF hydration IV antibiotics Adequate analgesia GI consult at the discretion of the primary team Colonoscopy in 6-8 weeks by JOSE Lynn f/u in surgery clinic for elective partial colectomy Code(s): K57.80 - DVTRCLI OF INTEST, PART UNSP, W PERF AND ABSCESS W/O BLEED (2) Diverticulitis large intestine Code(s): K57.32 - DVTRCLI OF LG INT W/O PERFORATION OR ABSCESS W/O BLEEDING Qualifiers: Diverticulitis bleeding: without bleeding Diverticulitis complication: with perforation and abscess Qualified Code(s): K57.20 - Diverticulitis of large intestine with perforation and abscess without bleeding (3) Constipation Code(s): K59.00 - CONSTIPATION, UNSPECIFIED Qualifiers: Constipation type: unspecified constipation type Qualified Code(s): K59.00 - Constipation, unspecified (4) Abdominal pain in male Code(s): R10.9 - UNSPECIFIED ABDOMINAL PAIN
[2019-03-27 13:15] LABS: BASO % 0.3 % (0-2.0); EOS % 4.3 % (0-4.5); HEMATOCRIT 30.4 % (35.4-49); HEMOGLOBIN 10.4 GM/dL (11.7-16.9); LYMPH % 15.5 % (8-40); MCH 30.3 pg (25.7-33.7); MCHC 34.2 g/dl (32.0-35.9); MEAN CELL VOLUME 88.6 fl (80-96); MEAN PLT VOLUME 9.2 fl (7.5-11.1); MONO % 6.4 % (3.8-10.2); NEUT % 73.5 % (42.8-82.8); RBC 3.43 M/mm3 (4.00-5.60); RDW 13.4 % (11.9-15.9); WHITE BLOOD COUNT 7.7 K/mm3 (4.0-10.0)
[2019-03-27 13:36] LABS: ALBUMIN 2.8 g/dl (3.4-5.0); BLOOD UREA NITROGEN 12.5 mg/dL (7-18); CALCIUM 8.2 mg/dL (8.5-10.1); POTASSIUM 3.6 mmol/L (3.5-5.1); TOT PROT 5.8 g/dl (6.4-8.2)
[2019-03-27 13:43] LABS: PLATELET COUNT 240 K/MM3 (134-434)
--- NOTE | 2019-03-27 14:15 | PN ---
Teaching Attending Note Name of Resident: Roma Christine ATTENDING PHYSICIAN STATEMENT I saw and evaluated the patient. I reviewed the resident's note and discussed the case with the resident. I agree with the resident's findings and plan as documented. SUBJECTIVE: LLQ abdominal pain improving. No nausea/vomiting. No diarrhea/melena /hematochezia. OBJECTIVE: Fever resolved, T max overnight 100.6. Hemodynamically Stable. Last Vital Signs Temp Pulse Resp BP Pulse Ox 98.3 F 66 20 124/69 94 L 03/27/19 06:16 03/27/19 06:16 03/27/19 06:16 03/27/19 06:16 03/26/19 21:00 Heart - S1, S2, RRR Lungs - clear to auscultation Abdomen - soft, mild LLQ tenderness (much improved). Bowel Sounds normal. Extremities - No calf tenderness, no edema. Laboratory Results - last 24 hr 03/26/19 03/26/19 03/27/19 17:39 20:39 05:40 WBC RBC Hgb Hct MCV MCH MCHC RDW Plt Count MPV Absolute Neuts (auto) Neutrophils % Lymphocytes % Monocytes % Eosinophils % Basophils % Nucleated RBC % Sodium Potassium Chloride Carbon Dioxide Anion Gap BUN Creatinine Est GFR (CKD-EPI)AfAm Est GFR (CKD-EPI)NonAf POC Glucometer 90 152 101 Random Glucose Calcium Total Bilirubin AST ALT Alkaline Phosphatase Total Protein Albumin 03/27/19 03/27/19 03/27/19 11:49 12:40 12:40 WBC 7.7 RBC 3.43 L Hgb 10.4 L Hct 30.4 L MCV 88.6 MCH 30.3 MCHC 34.2 RDW 13.4 Plt Count 240 MPV 9.2 Absolute Neuts (auto) 5.6 Neutrophils % 73.5 Lymphocytes % 15.5 D Monocytes % 6.4 Eosinophils % 4.3 D Basophils % 0.3 Nucleated RBC % 0 Sodium 142 Potassium 3.6 Chloride 107 Carbon Dioxide 30 Anion Gap 5 L BUN 12.5 Creatinine 1.0 Est GFR (CKD-EPI)AfAm 89.23 Est GFR (CKD-EPI)NonAf 76.99 POC Glucometer 136 Random Glucose 109 H Calcium 8.2 L Total Bilirubin 1.0 AST 16 ALT 19 Alkaline Phosphatase 72 Total Protein 5.8 L Albumin 2.8 L Current Medications Generic Name Dose Route Start Last Admin Trade Name Freq PRN Reason Stop Dose Admin Acetaminophen 1,000 mg 03/25/19 19:31 Ofirmev Injection - IVPB Q6H PRN PAIN OR FEVER Heparin Sodium (Porcine) 5,000 unit 03/26/19 22:00 03/27/19 05:42 Heparin - SQ 5,000 unit TID TERRY Administration Hydromorphone HCl 2 mg 03/25/19 10:01 03/26/19 20:46 Dilaudid Vial - IVPB 2 mg Q6H PRN Administration PAIN LEVEL 7 - 10 Piperacillin Sod/Tazobactam 100 mls @ 200 mls/hr 03/25/19 18:00 03/27/19 09: 07 Sod 4.5 gm/ Dextrose IVPB 200 mls/hr Q8H-IV TERRY Administration Protocol Sodium Chloride 1,000 mls @ 75 mls/hr 03/26/19 18:08 03/26/19 22:55 Normal Saline - IV 75 mls/hr ASDIR TERRY Administration Insulin Aspart 1 vial 03/25/19 08:15 03/27/19 11:51 Novolog Vial Sliding Scale - SQ Not Given ACHS [facility] Protocol ASSESSMENT AND PLAN: 68 year old male with history of HTN, HLD and DM 2, presented to [facility] ED with 2 week history of nagging LLQ abdominal pain, worse overnight, found to have perforated sigmoid diverticulitis with abscess and transferred to [facility]. 1. Sepsis secondary to Acute Perforated Sigmoid Diverticulitis with Abscess ( Acute Complicated Diverticulitis) Leukocytosis improved, Tmax 100.6, sepsis resolving. CT A/P - perforated acute diverticulitis at the junction of the descending and sigmoid colon with a small collection. Giant diverticulum vs chronic abscess within the mid sigmoid colon. 2.8 x 1.7 x 2.3cm IR consulted for drainage - felt that collection may be intramural and therefore not amenable to drainage. Continue IV Zosyn GI consult requested by patient's daughter. Diet advanced to regular. Discontinue IV Fluids. For out-patient colonoscopy once acute episode resolves with subsequent elective partial colectomy as per Surgery. 2. DM 2 - Maintain on Novolog sliding scale. 3. HTN - normally on Losartan/HCTZ, currently held due to normal BP in setting of sepsis. 4. HLD - Simvastatin, Gemfibrozil held. DVT Px - Heparin SQ
[2019-03-27] MEDS: SODIUM CHLORIDE 1,000 ML IV SCH (20:06)
[2019-03-27] MEDS: HYDROmorphone HCl 2 MG/ML VIAL IVPB PRN (21:16)
[2019-03-28] MEDS ORDERED: DEXTROSE 5%-WATER 100 ML IVPB ONE ×3 (01:15→18:17)
[2019-03-28] MEDS ORDERED: PIPERACILLIN/TAZOBACTAM 4.5 GM VIAL IVPB ONE ×3 (01:15→18:17)
[2019-03-28] MEDS: PIPERACILLIN/TAZOB 4.5 GM 4.5 GM in DEXTROSE 5%-WATER 100 ML IVPB SCH ×3 (01:35→18:39)
[2019-03-28] MEDS: INSULIN SLIDING SCALE (NOVOLOG) 1 VIAL SQ SCH ×4 (06:15→21:48)
[2019-03-28] MEDS: HEPARIN NA (PORCINE) 5,000 UNITS/ML 1ML VIAL SQ SCH ×3 (06:19→21:47)
[2019-03-28] MEDS: SODIUM CHLORIDE 1,000 ML IV SCH ×2 (06:23→23:09)
[2019-03-28] MEDS ORDERED: INSULIN (NOVOLOG) ASPART 100 UNITS/ML 10ML VIAL ONE ×2 (07:23→21:01)
--- NOTE | 2019-03-28 09:02 | CON.GI ---
Consult Consult Specialty:: GI Referred by:: Hospitalist service Reason for Consultation:: Diverticulitis - History of Present Illness Chief Complaint: Abdominal pain History of Present Illness: 68M admitted for evaluation of abdominal pain. he states that 2 weeks ago, he developed LLQ pain. He though he was developing a hernia and did not discuss this with his PMD or phys assistant. The pain waxed and waned up until this past Sunday. That day, he experienced severe LLQ pain, rnough to double him over and pass out. He was seen at the [facility]. There CT scan revealed perforated sigmoid diverticulitis with small fluid collection as well as a giant diverticulum vs. intramural abscess of the sigmoid. Per the surgical note , IR reviewed the study and felt it was an intramural abscess. Initial WBC was 18. Today it is 7.7. He still describes abdominal pain in the LLQ, however improved from previous. He believes that he had a colonoscopy 3 years ago at [facility]. The surgical consult describes that it was performed by Dr. Lynn however Mr. Chantal Khalil. Diverticulosis was noted and polyps were removed. His daughter was diagnosed with colon cancer at age 38. - History Source History Provided By: Patient, Medical Record Limitations to Obtaining History: No Limitations - Past Medical History Gastrointestinal: Yes: Constipation, Diverticulitis, Diverticulosis, Gastritis - Past Surgical History Past Surgical History: Yes: Hernia Repair (RIH) Additional Surgical History: Lipoma excision upper back - Alcohol/Substance Use Hx Alcohol Use: Yes (wine with dinner) History of Substance Use: reports: None - Smoking History Smoking history: Never smoked Have you smoked in the past 12 months: No Aproximately how many cigarettes per day: 0 - Social History Usual Living Arrangement: Alone ADL: Independent 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 History of Recent Travel: No Home Medications - Allergies Allergies/Adverse Reactions: Allergies Allergy/AdvReac Type Severity Reaction Status Date / Time No Known Allergies Allergy Verified 03/24/19 23:05 - Home Medications Home Medications: Ambulatory Orders Gemfibrozil 1 tab PO BID 03/25/19 Losartan/Hydrochlorothiazide [Losartan-Hctz 100-25 mg Tab] 1 each PO DAILY 03/25 Meclizine HCl [Antivert -] 25 mg PO DAILY 03/25/19 Metformin HCl [Glucophage] 750 mg PO BID 03/25/19 Simvastatin 20 mg PO HS 03/25/19 Sulindac 200 mg PO DAILY 03/25/19 Tamsulosin HCl [Flomax] 0.4 mg PO HS 03/25/19 Family Disease History - Family Disease History Family Disease History: Other: Father (: 62: Pancreatic Ca), Mother (: 81: "heart problems"), Brother (1, healthy), Sister (1, healthy), Son (2, healthy), Daughter (1, colon cancer age 38) Review of Systems - Review of Systems Constitutional: denies: Chills, Fever, Weakness Cardiovascular: denies: Chest Pain Respiratory: denies: Cough, SOB Gastrointestinal: reports: Abdominal Pain, Constipation (chronic) Physical Exam-GI Vital Signs: Vital Signs Temperature 97.6 F 03/28/19 06:00 Pulse Rate 62 03/28/19 06:00 Respiratory Rate 18 03/28/19 06:00 Blood Pressure 118/67 03/28/19 06:00 O2 Sat by Pulse Oximetry (%) 94 L 03/26/19 21:00 Constitutional: Yes: Calm Eyes: No: Sclera Icterus Cardiovascular: Yes: Regular Rate and Rhythm. No: Murmur Respiratory: Yes: CTA Bilaterally Gastrointestinal Inspection: No: Distention ...Auscultate: Yes: Normoactive Bowel Sounds ...Palpate: Yes: Soft, Tenderness (still with significant ttp LLQ with guarding) ...Percussion: No: Tympanitic Edema: No (No LE edema) Labs: CBC, BMP 03/27/19 12:40 03/27/19 12:40 INR, PTT INR 1.11 (0.83-1.09) H 03/25/19 08:45 Imaging - Results Cat Scan: Report Reviewed, Image Reviewed Problem List - Problems (1) Diverticulitis of large intestine with abscess without bleeding Assessment/Plan: 1st episode of acute compicated sigmoid diverticulitis: perforation and sequela of intramural abscess: Still with significant TTP in the LLQ noted on my exam with guardin. Continue Abx per ID 2. Ordered repeat CT scan of the A/P with contrast for tomorrow 3. Changed to clear liquids given physical exam findings 4. Surgical follow-up (D/W Dr. Ferguson. He will be reevaluating) 5. AM Labs, crp 6. Patient is aware that he will need follow-up with his gastroenterologits upon discharge. Given family history of colon cancer, repeat colonoscopy, id feasible, would be reasonable prior to elective resection. Code(s): K57.20 - DVTRCLI OF LG INT W PERFORATION AND ABSCESS W/O BLEEDING
--- NOTE | 2019-03-28 14:55 | PN ---
Progress Note, Physician History of Present Illness: AWAKE IN BED STILL WITH LLQ ABDOMINAL PAIN, BUT LESS NO C/O N/V + SOFT BM TODAY TOLERATED SOLID DIET NO FEVER/ CHILLS BC NO GROWTH - Current Medication List Current Medications: Active Medications Acetaminophen (Ofirmev Injection -) 1,000 mg IVPB Q6H PRN PRN Reason: PAIN OR FEVER Heparin Sodium (Porcine) (Heparin -) 5,000 unit SQ TID TERRY Last Admin: 03/28/19 06:19 Dose: 5,000 unit Hydromorphone HCl (Dilaudid Vial -) 2 mg IVPB Q6H PRN PRN Reason: PAIN LEVEL 7 - 10 Last Admin: 03/27/19 21:16 Dose: 2 mg Piperacillin Sod/Tazobactam (Sod 4.5 gm/ Dextrose) 100 mls @ 200 mls/hr IVPB Q8H-IV TERRY; Protocol Last Admin: 03/28/19 10:20 Dose: 200 mls/hr Sodium Chloride (Normal Saline -) 1,000 mls @ 75 mls/hr IV ASDIR TERRY Last Admin: 03/28/19 06:23 Dose: 75 mls/hr Insulin Aspart (Novolog Vial Sliding Scale -) 1 vial SQ ACHS TERRY; Protocol Last Admin: 03/28/19 11:49 Dose: Not Given - Objective Vital Signs: Vital Signs Temperature 98.2 F 03/28/19 10:00 Pulse Rate 63 03/28/19 10:00 Respiratory Rate 20 03/28/19 10:00 Blood Pressure 136/73 03/28/19 10:00 O2 Sat by Pulse Oximetry (%) 97 03/28/19 09:00 Constitutional: Yes: No Distress Eyes: Yes: Conjunctiva Clear Cardiovascular: Yes: Regular Rate and Rhythm, S1, S2 Respiratory: Yes: CTA Bilaterally Gastrointestinal: Yes: Normal Bowel Sounds, Soft, Tenderness, Other (MILD TENDERNESS TO DEEP PALP LLQ) Edema: No Labs: CBC, BMP 03/27/19 12:40 03/27/19 12:40 INR, PTT INR 1.11 (0.83-1.09) H 03/25/19 08:45 Assessment/Plan ACUTE COMPLICATED DIVERTICULITIS DIVERTICULAR ABSCESS CONTINUE EMPIRIC ZOSYN REPEAT CT ORDERED SURGICAL F/U
--- NOTE | 2019-03-28 17:41 | PN ---
Progress Note (short form) - Note Progress Note: SUBJECTIVE: LLQ abdominal pain improving. No nausea/vomiting. No diarrhea/melena /hematochezia. No fever/chills. OBJECTIVE: Fever resolved - afebrile. Hemodynamically Stable. Last Vital Signs Temp Pulse Resp BP Pulse Ox 98.2 F 63 20 136/73 97 03/28/19 10:00 03/28/19 10:00 03/28/19 15:00 03/28/19 15:00 03/28/19 09:00 Heart - S1, S2, RRR Lungs - clear to auscultation Abdomen - soft, mild LLQ tenderness (much improved). Bowel Sounds normal. Extremities - No calf tenderness, no edema. Laboratory Results - last 24 hr 03/27/19 03/28/19 03/28/19 20:54 05:32 11:49 POC Glucometer 124 97 133 Current Medications Generic Name Dose Route Start Last Admin Trade Name Freq PRN Reason Stop Dose Admin Acetaminophen 1,000 mg 03/25/19 19:31 Ofirmev Injection - IVPB Q6H PRN PAIN OR FEVER Heparin Sodium (Porcine) 5,000 unit 03/26/19 22:00 03/28/19 15:21 Heparin - SQ 5,000 unit TID TERRY Administration Hydromorphone HCl 2 mg 03/25/19 10:01 03/27/19 21:16 Dilaudid Vial - IVPB 2 mg Q6H PRN Administration PAIN LEVEL 7 - 10 Piperacillin Sod/Tazobactam 100 mls @ 200 mls/hr 03/25/19 18:00 03/28/19 10: 20 Sod 4.5 gm/ Dextrose IVPB 200 mls/hr Q8H-IV TERRY Administration Protocol Sodium Chloride 1,000 mls @ 75 mls/hr 03/26/19 18:08 03/28/19 06:23 Normal Saline - IV 75 mls/hr ASDIR TERRY Administration Insulin Aspart 1 vial 03/25/19 08:15 03/28/19 11:49 Novolog Vial Sliding Scale - SQ Not Given ACHS TERRY Protocol ASSESSMENT AND PLAN: 68 year old male with history of HTN, HLD and DM 2, presented to [facility] ED with 2 week history of nagging LLQ abdominal pain, worse overnight, found to have perforated sigmoid diverticulitis with abscess and transferred to [facility]. 1. Sepsis secondary to Acute Perforated Sigmoid Diverticulitis with Abscess ( Acute Complicated Diverticulitis) Leukocytosis improved, fever resolved, sepsis resolved CT A/P - perforated acute diverticulitis at the junction of the descending and sigmoid colon with a small collection. Giant diverticulum vs chronic abscess within the mid sigmoid colon. 2.8 x 1.7 x 2.3cm IR consulted for drainage - felt that collection may be intramural and therefore not amenable to drainage. Repeat CT A/P shows interval progression of abscess. Continue IV Zosyn for now pending Surgical re-eval. Diet held by GI currently pending Surgical re-evaluation. For out-patient colonoscopy once acute episode resolves with subsequent elective partial colectomy as per Surgery. 2. DM 2 - Maintain on Novolog sliding scale. 3. HTN - normally on Losartan/HCTZ, currently held due to normal BP in setting of sepsis. 4. HLD - Simvastatin, Gemfibrozil held. 5. Atelectasis on CT - asymptomatic. Will give Incentive Spirometry. DVT Px - Heparin SQ Visit type - Emergency Visit Emergency Visit: Yes ED Registration Date: 03/25/19 Care time: The patient presented to the Emergency Department on the above date and was hospitalized for further evaluation of their emergent condition. - New Patient This patient is new to me today: No - Critical Care Critical Care patient: No - Discharge Referral Referred to [facility] Med P.C.: No
--- NOTE | 2019-03-28 19:32 | PN ---
Progress Note, Physician Chief Complaint: abdominal pain History of Present Illness: 68 yo male PMH hypertension, diverticulosis, constipation, high cholesterol, diabetes who comes in complaining of left lower quadrant pain. Patient said he has had the pain mild for a couple of weeks and then today got much worse to the point that he became lightheaded dizzy and syncopized. he has had some interval improvement in his abdominal pain compared to yesterday and the day before. A repeat CT scan was ordered - Current Medication List Current Medications: Active Medications Acetaminophen (Ofirmev Injection -) 1,000 mg IVPB Q6H PRN PRN Reason: PAIN OR FEVER Heparin Sodium (Porcine) (Heparin -) 5,000 unit SQ TID TERRY Last Admin: 03/28/19 15:21 Dose: 5,000 unit Hydromorphone HCl (Dilaudid Vial -) 2 mg IVPB Q6H PRN PRN Reason: PAIN LEVEL 7 - 10 Last Admin: 03/27/19 21:16 Dose: 2 mg Piperacillin Sod/Tazobactam (Sod 4.5 gm/ Dextrose) 100 mls @ 200 mls/hr IVPB Q8H-IV TERRY; Protocol Last Admin: 03/28/19 18:39 Dose: 200 mls/hr Sodium Chloride (Normal Saline -) 1,000 mls @ 75 mls/hr IV ASDIR TERRY Last Admin: 03/28/19 06:23 Dose: 75 mls/hr Insulin Aspart (Novolog Vial Sliding Scale -) 1 vial SQ ACHS TERRY; Protocol Last Admin: 03/28/19 18:41 Dose: Not Given - Objective Vital Signs: Vital Signs Temperature 98.1 F 03/28/19 17:27 Pulse Rate 62 03/28/19 17:27 Respiratory Rate 18 03/28/19 17:27 Blood Pressure 122/71 03/28/19 17:27 O2 Sat by Pulse Oximetry (%) 97 03/28/19 09:00 Vital Signs Period Temp Pulse Resp BP Sys/[place] Pulse Ox Last 24 Hr 97.6 F-98.8 F 62-66 16-20 118-136/66-73 97 Constitutional: Yes: Well Nourished, No Distress, Calm Eyes: Yes: Conjunctiva Clear, EOM Intact HENT: Yes: Atraumatic, Normocephalic Neck: Yes: Supple, Trachea Midline Cardiovascular: Yes: Regular Rate and Rhythm, S1, S2 Respiratory: Yes: Regular, CTA Bilaterally Gastrointestinal: Yes: Normal Bowel Sounds, Soft, Tenderness. No: Tenderness, Rebound Neurological: Yes: Alert, Oriented Psychiatric: Yes: Alert, Oriented Labs: CBC, BMP 03/27/19 12:40 03/27/19 12:40 INR, PTT INR 1.11 (0.83-1.09) H 03/25/19 08:45 Problem List - Problems (1) Diverticular disease of intestine with perforation and abscess Assessment/Plan: 68yo male with MMP including pandiverticulosis presents with his first episode of complicated diverticulitis (contained perforated diverticulsitis with abscess ) reviewed with IR thought to be a large intramural abscess no a free perforation. Only would consider emergency intervention if wosening clinically. The plan for elective partial colectomy was discussed with patient and daughter. He has improved abdominal pain, he is afebrile Tmax 98.8, he is having regular bowel movements, leukocytosis resolved WBC 7.7K. ALL clinical indicators suggest that the patient is improving but he is not completely pain free yet. The CT scan was reviewed, the increase in the volume of the abscess has unsubstantiated prognostic value as it is not typical to re-image a diverticular abscess that has not been directly percutaneouly drained. I would stay the course and manage the patient based on his clinical improvement. clear liquid diet advance diet to regular when pain free IVF hydration IV antibiotics transition to PO antibiotics Adequate analgesia Colonoscopy in 6-8 weeks by JOSE Lynn f/u in surgery clinic for elective partial colectomy Code(s): K57.80 - DVTRCLI OF INTEST, PART UNSP, W PERF AND ABSCESS W/O BLEED (2) Diverticulitis large intestine Code(s): K57.32 - DVTRCLI OF LG INT W/O PERFORATION OR ABSCESS W/O BLEEDING Qualifiers: Diverticulitis bleeding: without bleeding Diverticulitis complication: with perforation and abscess Qualified Code(s): K57.20 - Diverticulitis of large intestine with perforation and abscess without bleeding (3) Constipation Code(s): K59.00 - CONSTIPATION, UNSPECIFIED Qualifiers: Constipation type: unspecified constipation type Qualified Code(s): K59.00 - Constipation, unspecified (4) Abdominal pain in male Code(s): R10.9 - UNSPECIFIED ABDOMINAL PAIN
[2019-03-28] MEDS: HYDROmorphone HCl 2 MG/ML VIAL IVPB PRN (20:18)
[2019-03-29] MEDS ORDERED: PIPERACILLIN/TAZOBACTAM 4.5 GM VIAL IVPB ONE ×3 (01:17→16:39)
[2019-03-29] MEDS ORDERED: DEXTROSE 5%-WATER 100 ML IVPB ONE ×3 (01:17→16:39)
[2019-03-29] MEDS: PIPERACILLIN/TAZOB 4.5 GM 4.5 GM in DEXTROSE 5%-WATER 100 ML IVPB SCH ×3 (02:10→17:57)
[2019-03-29] MEDS: HEPARIN NA (PORCINE) 5,000 UNITS/ML 1ML VIAL SQ SCH ×2 (06:17→15:13)
[2019-03-29] MEDS: INSULIN SLIDING SCALE (NOVOLOG) 1 VIAL SQ SCH ×3 (06:17→17:56)
[2019-03-29 08:20] LABS: BASO % 0.6 % (0-2.0); HEMATOCRIT 31.4 % (35.4-49); HEMOGLOBIN 10.6 GM/dL (11.7-16.9); LYMPH % 17.3 % (8-40); MCHC 33.8 g/dl (32.0-35.9); MEAN CELL VOLUME 88.9 fl (80-96); MEAN PLT VOLUME 8.7 fl (7.5-11.1); MONO % 6.9 % (3.8-10.2); NEUT % 69.2 % (42.8-82.8); RBC 3.53 M/mm3 (4.00-5.60); RDW 13.1 % (11.9-15.9); WHITE BLOOD COUNT 6.9 K/mm3 (4.0-10.0)
[2019-03-29 09:02] LABS: BLOOD UREA NITROGEN 9.3 mg/dL (7-18); CALCIUM 8.7 mg/dL (8.5-10.1); POTASSIUM 4.3 mmol/L (3.5-5.1)
[2019-03-29 09:18] LABS: PLATELET COUNT 309 K/MM3 (134-434)
[2019-03-29] MEDS: SODIUM CHLORIDE 1,000 ML IV SCH ×2 (09:42→19:04)
--- NOTE | 2019-03-29 13:59 | PN ---
Progress Note, Physician History of Present Illness: AWAKE IN BED REPORTS IMPROVEMENT IN LLQ PAIN NO C/O N/V REPORTS + LIQUID BM TODAY NO FEVER/ CHILLS BC NO GROWTH REPEAT CT SHOWS LARGER L PARACOLIC ABSCESS, CONTINUED INFLAMMATION AT DESC COLON/ SIGMOID JUNCTION - Current Medication List Current Medications: Active Medications Acetaminophen (Ofirmev Injection -) 1,000 mg IVPB Q6H PRN PRN Reason: PAIN OR FEVER Heparin Sodium (Porcine) (Heparin -) 5,000 unit SQ TID TERRY Last Admin: 03/29/19 06:17 Dose: 5,000 unit Piperacillin Sod/Tazobactam (Sod 4.5 gm/ Dextrose) 100 mls @ 200 mls/hr IVPB Q8H-IV TERRY; Protocol Last Admin: 03/29/19 09:42 Dose: 200 mls/hr Sodium Chloride (Normal Saline -) 1,000 mls @ 75 mls/hr IV ASDIR TERRY Last Admin: 03/29/19 09:42 Dose: Not Given Insulin Aspart (Novolog Vial Sliding Scale -) 1 vial SQ ACHS [facility]; Protocol Last Admin: 03/29/19 12:23 Dose: Not Given - Objective Vital Signs: Vital Signs Temperature 98.4 F 03/29/19 06:59 Pulse Rate 54 L 03/29/19 06:59 Respiratory Rate 20 03/29/19 06:59 Blood Pressure 124/61 03/29/19 06:59 O2 Sat by Pulse Oximetry (%) 97 03/28/19 09:00 Constitutional: Yes: No Distress Cardiovascular: Yes: Regular Rate and Rhythm, S1, S2 Respiratory: Yes: CTA Bilaterally Gastrointestinal: Yes: Normal Bowel Sounds, Soft, Tenderness (MILD LLQ TENDERNESS) Peripheral Pulses WNL: No Labs: CBC, BMP 03/29/19 07:00 03/29/19 07:00 INR, PTT INR 1.11 (0.83-1.09) H 03/25/19 08:45 Assessment/Plan ACUTE COMPLICATED DIVERTICULITIS DIVERTICULAR ABSCESS CONTINUE ZOSYN FAVOR PICC FOR CONTINUED IV ANTIBIOTIC THERAPY +/- IR DRAINAGE DISCUSSED WITH PRIMARY, PATIENT'S DAUGHTER CALL PLACED TO SURGERY
--- NOTE | 2019-03-29 16:28 | PN.GI ---
GI Progress Note Subjective: GI NOte( covering Dr Ramos): CT reveals an increase in abscess size. Jose denies pain. I have told him that I need to cut his diet back to clear liquids and that he needs to stay in the hospital for further IV antibiotics. Dr Ruff and Dr. Ferguson are in agreement - Objective Vital Signs: Vital Signs Temperature 98.2 F 03/29/19 14:41 Pulse Rate 65 03/29/19 14:41 Respiratory Rate 18 03/29/19 14:41 Blood Pressure 143/72 03/29/19 14:41 O2 Sat by Pulse Oximetry (%) 97 03/28/19 09:00 Laboratory Tests 03/25/19 03/29/19 03/29/19 01:25 07:00 07:00 WBC 18.0 H 6.9 C-Reactive Protein 7.4 H Constitutional: Anxious ...Auscultate: Yes: Normoactive Bowel Sounds ...Palpate: Yes: Soft, Tenderness (mild LLQ tenderness on deep palpation) Labs: CBC, BMP 03/29/19 07:00 03/29/19 07:00 INR, PTT INR 1.11 (0.83-1.09) H 03/25/19 08:45 Assessment/Plan Impression: Descending colon/sigmoid diverticulitis with enlarging abscess Giant sigmoid diverticulum Plan: -- Clear liquids -- Continue IV antibiotics -- Discussed with Dr Ruff and Dr Ferguson Problem List - Problems (1) Abdominal pain in male Code(s): R10.9 - UNSPECIFIED ABDOMINAL PAIN (2) Diverticulitis of large intestine with abscess without bleeding Code(s): K57.20 - DVTRCLI OF LG INT W PERFORATION AND ABSCESS W/O BLEEDING (3) Sigmoid diverticulum Code(s): K57.30 - DVRTCLOS OF LG INT W/O PERFORATION OR ABSCESS W/O BLEEDING
[2019-03-29 17:22] VITALS: BP 143/77; PULSE 64; TEMP 98.7
--- NOTE | 2019-03-29 18:23 | DS ---
Physical Exam: SUBJECTIVE: LLQ abdominal pain improving. No nausea/vomiting. No diarrhea/melena /hematochezia. No fever/chills. Tolerating oral intake. OBJECTIVE: Afebrile, Hemodynamically Stable. Last Vital Signs Temp Pulse Resp BP Pulse Ox 98.7 F 64 20 143/77 97 03/29/19 16:45 03/29/19 16:45 03/29/19 16:45 03/29/19 16:45 03/28/19 09:00 Heart - S1, S2, RRR Lungs - clear to auscultation Abdomen - soft, mild LLQ tenderness (much improved). Bowel Sounds normal. Extremities - No calf tenderness, no edema. Laboratory Results - last 24 hr 03/28/19 03/28/19 03/29/19 18:40 21:44 06:15 WBC RBC Hgb Hct MCV MCH MCHC RDW Plt Count MPV Absolute Neuts (auto) Neutrophils % Lymphocytes % Monocytes % Eosinophils % Basophils % Nucleated RBC % Sodium Potassium Chloride Carbon Dioxide Anion Gap BUN Creatinine Est GFR (CKD-EPI)AfAm Est GFR (CKD-EPI)NonAf POC Glucometer 93 101 95 Random Glucose Calcium C-Reactive Protein 03/29/19 03/29/19 03/29/19 07:00 07:00 12:01 WBC 6.9 RBC 3.53 L Hgb 10.6 L Hct 31.4 L MCV 88.9 MCH 30.0 MCHC 33.8 RDW 13.1 Plt Count 309 D MPV 8.7 Absolute Neuts (auto) 4.8 Neutrophils % 69.2 Lymphocytes % 17.3 Monocytes % 6.9 Eosinophils % 6.0 H Basophils % 0.6 Nucleated RBC % 0 Sodium 143 Potassium 4.3 Chloride 108 H Carbon Dioxide 27 Anion Gap 9 BUN 9.3 Creatinine 1.0 Est GFR (CKD-EPI)AfAm 89.23 Est GFR (CKD-EPI)NonAf 76.99 POC Glucometer 93 Random Glucose 101 Calcium 8.7 C-Reactive Protein 7.4 H 03/29/19 17:27 WBC RBC Hgb Hct MCV MCH MCHC RDW Plt Count MPV Absolute Neuts (auto) Neutrophils % Lymphocytes % Monocytes % Eosinophils % Basophils % Nucleated RBC % Sodium Potassium Chloride Carbon Dioxide Anion Gap BUN Creatinine Est GFR (CKD-EPI)AfAm Est GFR (CKD-EPI)NonAf POC Glucometer 124 Random Glucose Calcium C-Reactive Protein Date of Admission:03/25/19 Date of Discharge: 03/29/19 Minutes to complete discharge: 45 Discharge Summary Reason For Visit: PERFORATED DIVERTICULITIS Current Active Problems Abdominal pain in male (Acute) Constipation (Acute) Diverticular disease of intestine with perforation and abscess (Acute) Diverticulitis large intestine (Acute) Diverticulitis of large intestine with abscess without bleeding (Acute) Sigmoid diverticulum (Acute) Hospital Course: ASSESSMENT AND PLAN: 68 year old male with history of HTN, HLD and DM 2, presented to [facility] ED with 2 week history of cramping LLQ abdominal pain, worse overnight, found to have complicated sigmoid diverticulitis with abscess and transferred to [facility]. He is being treated conservatively with IV Zosyn as IR declined percutaneous drainage. He was evaluated by Surgery who recommends prolonged antibiotic course with outpatient colonoscopy in 4-6 weeks and interval colectomy. His clinical status has improved significantly with resolution of fevers and leukocytosis. He is tolerating oral intake. 1. Sepsis secondary to Acute Perforated Sigmoid Diverticulitis with Abscess ( Acute Complicated Diverticulitis) Leukocytosis resolved, fever resolved, sepsis resolved. CT A/P - perforated acute diverticulitis at the junction of the descending and sigmoid colon with a small collection. Giant diverticulum vs chronic abscess within the mid sigmoid colon. 2.8 x 1.7 x 2.3cm IR consulted for drainage - felt that collection may be intramural and therefore not amenable to drainage. Repeat CT shows interval progression of abscess. Continue IV Zosyn Clinically improved but still has some LLQ tenderness - will transfer to [facility] for further evaluation by Colorectal Surgery and IR for possible intervention/second opinion. Accepting Surgeon - Dr. Pisano. Discussed with patient and his daughter, Carolin, who are in agreement. 2. DM 2 - Maintain on Novolog sliding scale. 3. HTN - normally on Losartan/HCTZ, currently held due to normal BP in setting of sepsis. 4. HLD - Simvastatin, Gemfibrozil held. DVT Px - Heparin SQ Condition: Good - Instructions Diet, Activity, Other Instructions: Activity: Resume your usual activities gradually, but no heavy exertion or lifting more than 10-15 pounds for 4-6 weeks. Follow-up: Call Dr. Ferguson office at [phone] to make your followup appointment (Sunday in approximately 6-8 weeks after discharge as advised). Clinic is held in the Diagnostic Center on the first floor of [facility]. Call the office if you have: * increasing pain not responsive to pain medication * fever of 101F or higher Also, see your medical doctor within 1-2 weeks. Referrals: Brady Ferguson MD [Staff Physician] - 2 Weeks - Home Medications Comprehensive Discharge Medication List: Ambulatory Orders Gemfibrozil 1 tab PO BID 03/25/19 Losartan/Hydrochlorothiazide [Losartan-Hctz 100-25 mg Tab] 1 each PO DAILY 03/25 Meclizine HCl [Antivert -] 25 mg PO DAILY 03/25/19 Metformin HCl [Glucophage] 750 mg PO BID 03/25/19 Simvastatin 20 mg PO HS 03/25/19 Sulindac 200 mg PO DAILY 03/25/19 Tamsulosin HCl [Flomax] 0.4 mg PO HS 03/25/19 Problem List - Problems (1) Diverticular disease of intestine with perforation and abscess Code(s): K57.80 - DVTRCLI OF INTEST, PART UNSP, W PERF AND ABSCESS W/O BLEED This patient is new to me today: No Emergency Visit: Yes ED Registration Date: 03/25/19 Care time: The patient presented to the Emergency Department on the above date and was hospitalized for further evaluation of their emergent condition. Critical Care patient: No - Discharge Referral Referred to [facility] Med P.C.: No
== END 2019-03-29 20:50 | disposition short-term general hospital (02) | DRG 872 ==
LOC: FER 00:34 → J8W 07:50
DX: A41.9 Sepsis, unspecified organism (principal); K57.20 Diverticulitis of large intestine with perforation and abscess without bleeding; J98.11 Atelectasis; E11.9 Type 2 diabetes mellitus without complications; I10 Essential (primary) hypertension; E78.5 Hyperlipidemia, unspecified; K59.00 Constipation, unspecified; D72.829 Elevated white blood cell count, unspecified
CPT/HCPCS: 36415; 70450-TC; 71045-TC-FY; 74177-TC; 80048; 80053; 81003; 82550; 82553; 82962; 83735; 84100; 84484; 85025; 85610; 86140; 86850; 86900; 86901; 87040; 93005; 99282-25; J0131; J1644; J7030; Q9967

== ENCOUNTER 2022-04-27 08:02 | Emergency (ER) | payer OTHER ==
[2022-04-27 08:22] VITALS: BP 124/79; PULSE 82; RESP 18; TEMP 97.3; BMI 28.1
== END 2022-04-27 10:39 | disposition home or self-care (01) ==
LOC: FER 08:02
DX: S16.1XXA Strain of muscle, fascia and tendon at neck level, initial encounter (principal); W20.8XXA Other cause of strike by thrown, projected or falling object, initial encounter
CPT/HCPCS: 72125-TC; 99284-25

== ENCOUNTER 2022-09-20 07:52 | Day surgery (SDC) | payer OTHER ==
[2022-09-19 11:55] VITALS: BMI 28.5
[2022-09-20] MEDS ORDERED: TROPICAMIDE 1% OPHTH SOLN 15 ML BOTTLE ONE (08:03)
[2022-09-20] MEDS ORDERED: PHENYLEPHRINE 2.5% OPHTH SOLN 15 ML BOTTLE ONE (08:03)
[2022-09-20] MEDS ORDERED: CYCLOPENTOLATE 2% OPHTH SOLN 2 ML BOTTLE ONE (08:03)
[2022-09-20] MEDS: CIPROFLOXACIN 0.3% EYE DROPS 5 ML BOTTLE ONE ×3 (08:15→08:27)
[2022-09-20] MEDS ORDERED: CYCLOPENTOLATE 2% OPHTH SOLN 2 ML BOTTLE OD ONE ×2 (08:15→08:20)
[2022-09-20] MEDS ORDERED: PHENYLEPHRINE 2.5% OPHTH SOLN 15 ML BOTTLE OD ONE ×3 (08:20→08:30)
[2022-09-20] MEDS ORDERED: TROPICAMIDE 1% OPHTH SOLN 15 ML BOTTLE OD ONE ×2 (08:25→08:30)
[2022-09-20] MEDS ORDERED: LIDOCAINE 1% P/F 10 MG/ML VIAL ONE (08:57)
[2022-09-20] MEDS ORDERED: CARBACHOL 0.01% INTRA-OCULAR 1.5 ML VIAL ONE (08:58)
[2022-09-20] MEDS ORDERED: BSS (NA/CA/MG/K) BALANCED SALT SOLUTION OPHTH SOLN 15 ML BOTTLE ONE (08:58)
[2022-09-20] MEDS ORDERED: NEO/POLYMYX B SULF/DEXAMETH OPHTHALMIC 5ML BOTTLE ONE (08:58)
[2022-09-20] MEDS ORDERED: TETRACAINE 0.5% OPHTH SOLN 2 ML BOTTLE ONE (08:58)
[2022-09-20] MEDS ORDERED: MIDAZOLAM HCL 2 MG/2 ML SINGLE DOSE VIAL ONE (09:13)
[2022-09-20 11:08] VITALS: RESP 18; TEMP 97.9
[2022-09-20 11:11] VITALS: BP 112/66; PULSE 66
== END 2022-09-20 10:35 | disposition home or self-care (01) ==
LOC: FASU 07:52
PROVIDERS: ATTEND Ophthalmology
PROC: 08RJ3JZ Replacement of Right Lens with Synthetic Substitute, Percutaneous Approach (ICD-10-PCS; principal; 2022-09-20 09:42)
DX: H26.8 Other specified cataract (principal)
CPT/HCPCS: 66984; V2632

== ENCOUNTER 2022-10-18 09:03 | Day surgery (SDC) | payer OTHER ==
[2022-10-13 11:57] VITALS: BMI 28.5
[2022-10-18] MEDS ORDERED: NEO/POLYMYX B SULF/DEXAMETH OPHTHALMIC 5ML BOTTLE ONE (09:27)
[2022-10-18] MEDS ORDERED: CARBACHOL 0.01% INTRA-OCULAR 1.5 ML VIAL ONE (09:27)
[2022-10-18] MEDS ORDERED: BSS (NA/CA/MG/K) BALANCED SALT SOLUTION OPHTH SOLN 15 ML BOTTLE ONE (09:27)
[2022-10-18] MEDS: CIPROFLOXACIN 0.3% EYE DROPS 5 ML BOTTLE ONE ×3 (09:40→09:50)
[2022-10-18] MEDS: TROPICAMIDE 1% OPHTH SOLN 15 ML BOTTLE ONE ×3 (09:40→09:50)
[2022-10-18] MEDS: CYCLOPENTOLATE 2% OPHTH SOLN 2 ML BOTTLE ONE ×3 (09:40→09:50)
[2022-10-18] MEDS: PHENYLEPHRINE 2.5% OPTHALMIC DROP 2ML BOTTLE ONE ×3 (09:40→09:50)
[2022-10-18] MEDS ORDERED: MIDAZOLAM HCL 2 MG/2 ML SINGLE DOSE VIAL ONE (10:27)
[2022-10-18 11:11] VITALS: PULSE 68; RESP 18; TEMP 97.9
[2022-10-18 11:24] VITALS: BP 118/68
== END 2022-10-18 11:32 | disposition home or self-care (01) ==
LOC: FASU 09:03
PROVIDERS: ATTEND Ophthalmology
PROC: 08RK3JZ Replacement of Left Lens with Synthetic Substitute, Percutaneous Approach (ICD-10-PCS; principal; 2022-10-18 10:48)
DX: H26.8 Other specified cataract (principal)
CPT/HCPCS: 66984; V2632; 82962